=== PATIENT | male | born 1970 | race Caucasian/White ===

== ENCOUNTER 2021-06-22 03:39 | Outpatient (CLI) | payer MEDICARE, MEDICAID, SELFPAY ==
[2021-06-22 12:49] LABS: HCT 40.5 % (40.0-50.0); HGB 13.6 g/dL (13.5-17.5); MCH 32.3 pg (27.0-33.0); MCHC 33.6 % (32.0-36.0); MCV 96.2 fL (80-95); Platelet Count 223 10^3/uL (130-400); RBC 4.21 10^6/uL (4.36-5.78); RDW 12.3 % (11.8-14.1); RDW-SD 43.8 fL; WBC 5.82 10^3/uL (4.4-10.8)
[2021-06-22 13:19] LABS: Anion Gap -0.5 mmol/L (3-11); BUN 12 mg/dL (7-18); CO2 30.5 mmol/L (21.0-32.0); CREATININE 1.1 mg/dL (0.70-1.30); Calcium 9.2 mg/dL (8.5-10.1); Calculated LDL 94 mg/dL (<100); Chloride 107 mmol/L (98-107); Cholesterol 166 mg/dL (<200); Glucose 99 mg/dL (74-106); HDL Cholesterol 29 mg/dL (40-60); Potassium 4.1 mmol/L (3.5-5.1); Sodium 137 mmol/L (136-145); Triglyceride 219 mg/dL (<150)
[2021-07-08 13:36] LABS: Testosterone, Free 11.8 ng/dL (4.26-16.4); Testosterone, Total 537 ng/dL (240-950)
== END 2021-06-22 03:40 | disposition home or self-care (01) ==
LOC: LOS 03:40
PROVIDERS: PCP Family Medicine; Visit Provider Family Medicine
DX: E87.1 Hypo-osmolality and hyponatremia (principal); E78.5 Hyperlipidemia, unspecified; R53.83 Other fatigue; F31.9 Bipolar disorder, unspecified
CPT/HCPCS: 36415; 80048; 80061; 84402; 84403; 85027